=== PATIENT | female | born 1995 | race Two or more races ===

== ENCOUNTER → 2025-01-20 | Outpatient (CLI) | payer OTHER, SELFPAY ==
--- NOTE | 2025-01-20 16:14 | XR_ITS ---
Examination: Lumbar spine, 5 views Technique: Lumbar spine AP, lateral, coned lateral lower lumbar spine, bilateral obliques 5 views Exam date and time: January 20, 2025 1638 hrs. Indications: Patient fell today with injury to lower back, lower back pain. Findings: Satisfactory alignment lumbar vertebral bodies No lumbar fracture Early degenerative disc disease L3-L4, L5-S1 Impression: No lumbar fracture
== END | disposition home or self-care (01) ==
PROVIDERS: PCP Family Medicine; Referring Provider Family Medicine; Visit Provider Family Medicine
DX: S39.92XA Unspecified injury of lower back, initial encounter (principal); W19.XXXA Unspecified fall, initial encounter
CPT/HCPCS: 72110